=== PATIENT | male | born 1990 ===

== ENCOUNTER 2021-04-01 14:39 | Emergency (ER) | payer OTHER ==
[2021-04-01] MEDS ORDERED: NA CHLORIDE 0.9% 1,000 ML ONE (15:12)
[2021-04-01] MEDS ORDERED: ONDANSETRON 4 MG/2 ML VIAL ONE (15:12)
[2021-04-01] MEDS ORDERED: FAMOTIDINE 20 MG/2 ML VIAL IV ONE (15:12)
[2021-04-01 15:53] LABS: Absolute Lymphocytes (CBC) 0.3 K/uL (0.7-4.9); Hematocrit 52.7 % (39.6-49.0); Lymphocytes % 2.5 % (15.3-44.8); MPV 8.2 fL (7.6-11.3); RBC Red Blood Cell Count 6.39 M/uL (4.33-5.43)
[2021-04-01 16:32] LABS: Platelet Estimate ADEQ; White Blood Cell Scan OK (OK)
[2021-04-01 16:33] LABS: Blood Morphology Comment NOT SEEN (NOT SEEN)
[2021-04-01 18:02] LABS: Bilirubin Direct 0.1 mg/dL (0-0.2)
[2021-04-01 18:03] LABS: Potassium 4.4 mmol/L (3.5-5.1)
--- NOTE | 2021-04-01 19:07 | RAD REPORT ---
EXAM DESCRIPTION: CT - Abdomen Pelvis W Contrast - 04/01/2021 6:32 pm CLINICAL HISTORY: lower abdomen pain COMPARISON: <Comparisons> TECHNIQUE: Biphasic, helical CT imaging of the abdomen and pelvis was performed following 100 ml non -ionic IV contrast. No oral contrast. All CT scans are performed using dose optimization technique as appropriate and may include automated exposure control or mA/KV adjustment according to patient size. FINDINGS: No suspicious findings in the lung bases. The liver, spleen, and pancreas show no suspicious findings. Gallbladder and biliary tree are also wi thout suspicious finding. Symmetric renal function is seen with no hydronephrosis or suspicious renal mass. No pyelonephritis o r acute parenchymal process. No bladder abnormalities. No adrenal abnormalities. No gastric dilatation or wall thickening. Multiple fluid-filled nondilated small bowel loops are pres ent without wall thickening, mass or wall edema. The appendix is normal. No acute colon finding. No free air, free fluid or inflammatory stranding. No hernia, mass or bulky lymphadenopathy. No suspicious bony findings. IMPRESSION: No appendicitis, obstruction, free air or other emergent CT finding. Patient has prominent fluid-filled small bowel loops. This is a nonspecific pattern but could indicat e enteritis.
--- NOTE | 2021-04-01 19:47 | EDPHYS ---
Physician Documentation [facility] – [place], [place] Name: Adal Gibson Age: 30 yrs Sex: Male : 1990 Arrival Date: 04/01/2021 Time: 14:41 Bed 15 Private MD: ED Physician Oscar Kilpatrick HPI: 04/01 15:05 This 30 yrs old Unknown Male presents to ER via EMS with complaints of Abdominal Pain, cp Nausea. 15:05 The patient presents with abdominal pain. cp 15:05 Onset: The symptoms/episode began/occurred this morning. Associated signs and symptoms: cp Pertinent positives: nausea and vomiting, Pertinent negatives: chest pain, constipation, diarrhea, fever, headache, shortness of breath, testicular pain. 15:05 The symptoms are described as waxing/waning. cp 15:05 The symptoms do not radiate. Severity of pain: in the emergency department the pain has cp improved. Historical: - Allergies: 14:47 No Known Allergies; ic1 - Home Meds: 14:47 Albuterol Inhl [Active]; ic1 - PMHx: 14:47 Asthma; ic1 - Immunization history:: Adult Immunizations up to date. - Social history:: Smoking status: Patient denies any tobacco usage or history of. ROS: 15:10 Constitutional: Negative for body aches, chills, fever. cp 15:10 Eyes: Negative for injury, pain, redness, and discharge. cp 15:10 ENT: Negative for ear pain, sore throat, difficulty swallowing, difficulty handling secretions. 15:10 Cardiovascular: Negative for chest pain, palpitations. 15:10 Respiratory: Negative for cough, shortness of breath, wheezing. 15:10 Abdomen/GI: Positive for abdominal pain, nausea and vomiting, Negative for diarrhea, constipation, hematemesis. 15:10 Neuro: Negative for altered mental status, headache, weakness. 15:10 All other systems are negative. Exam: 15:15 Constitutional: The patient appears in no acute distress, alert, awake, cp non-diaphoretic, non-toxic, well developed, well nourished, uncomfortable. 15:15 Head/Face: Normocephalic, atraumatic. cp 15:15 Eyes: Periorbital structures: appear normal, Conjunctiva: normal, no exudate, no injection, Sclera: no appreciated abnormality, Lids and lashes: appear normal, bilaterally. 15:15 ENT: External ear(s): are unremarkable, Nose: is normal, Mouth: Lips: moist, Oral mucosa: moist, Posterior pharynx: Airway: no evidence of obstruction, patent. 15:15 Chest/axilla: Inspection: normal. 15:15 Cardiovascular: Rate: normal, Rhythm: regular. 15:15 Respiratory: the patient does not display signs of respiratory distress, Respirations: normal, no use of accessory muscles, no retractions, labored breathing, is not present, Breath sounds: are clear throughout, no decreased breath sounds, no stridor, no wheezing. 15:15 Abdomen/GI: Inspection: scar(s), are noted in the midline above umbilicus, Bowel sounds: active, all quadrants, Palpation: soft, in all quadrants, mild abdominal tenderness, in the right lower quadrant, rebound tenderness, is not appreciated, voluntary guarding, is not appreciated, involuntary guarding, is not appreciated. 15:15 Back: pain, is absent, ROM is normal. 15:15 Neuro: Orientation: to person, place \T\ time. Mentation: is normal. Vital Signs: 14:42 BP 105 / 74; Pulse 88; Resp 20; Temp 97.8; Pulse Ox 100% ; ic1 15:17 BP 135 / 86; Pulse 65; Resp 18; Pulse Ox 100% on R/A; ic1 18:28 BP 114 / 72; Pulse 77; Resp 18; Pulse Ox 99% on R/A; ic1 20:11 BP 115 / 70; Pulse 70; Resp 16; Pulse Ox 100% on R/A; st1 MDM: 14:47 Patient medically screened. cp 15:00 Differential diagnosis: appendicitis, cholecystitis, Cholelithiasis, gastritis, cp gastroesophageal reflux disease, non-specific abd pain, pancreatitis, Peptic Ulcer Disease, Perf. Duodenal Ulcer, Perf. Gastric Ulcer. 19:46 Data reviewed: vital signs, nurses notes, lab test result(s), radiologic studies, CT cp scan. 19:46 Counseling: I had a detailed discussion with the patient and/or guardian regarding: the cp historical points, exam findings, and any diagnostic results supporting the discharge/admit diagnosis, lab results, radiology results, to return to the emergency department if symptoms worsen or persist or if there are any questions or concerns that arise at home. Response to treatment: the patient's symptoms have markedly improved after treatment. Special discussion: Based on the patient's Hx, exam, and Dx evaluation, there is no indication for emergent surgery or inpatient Tx. It is understood by the patient/guardian that if the Sx's persist or worsen they need to return immediately for re-evaluation. ED course: VSS. Pain and nausea improved and vomiting resolved. Will discharge back into custody of [facility] guards for continued monitoring. 04/01 14:48 Order name: Basic Metabolic Panel; Complete Time: 18:58 cp 04/01 18:58 Interpretation: Normal except: NA 135; CL 109; GFR 64. cp 04/01 14:48 Order name: CBC with Diff; Complete Time: 16:53 cp 04/01 16:53 Interpretation: Normal except: RBC 6.39; HCT 52.7; TWYLA% 90.1; LYM% 2.5; NEUT A 9.3; cp LYMA 0.3. 04/01 14:48 Order name: Hepatic Function; Complete Time: 18:58 cp 04/01 18:59 Interpretation: Normal except: GLOB 4.0; A/G 1.0. cp 04/01 14:48 Order name: Lipase; Complete Time: 18:58 cp 04/01 18:59 Interpretation: Reviewed. 04/01 14:48 Order name: CT Abd/Pelvis - IV Contrast Only; Complete Time: 19:17 cp 04/01 16:33 Order name: CBC Smear Scan; Complete Time: 16:53 EDMS 04/01 14:48 Order name: IV Saline Lock; Complete Time: 15:09 cp 04/01 14:48 Order name: Labs collected and sent; Complete Time: 15:46 cp 04/01 15:56 Order name: Labs - recollect needed: recollect light green top; Complete Time: 17:27 bd 04/01 19:18 Order name: PO challenge; Complete Time: 20:10 cp Administered Medications: 15:26 Drug: Zofran (Ondansetron) 4 mg Route: IVP; Site: right hand; ic1 15:27 Drug: Pepcid (famotidine) 20 mg Route: IVP; Site: right hand; ic1 15:27 Drug: NS 0.9% 1000 ml Route: IV; Rate: 1 bolus; Site: right hand; ic1 20:11 Not Given (Patient Refused): Ketorolac 15 mg IVP once st1 20:11 Not Given (Patient Refused): Bentyl (dicyclomine) 20 mg PO once st1 Disposition Summary: 04/01/21 19:46 Discharge Ordered Location: Home cp Problem: new cp Symptoms: have improved cp Condition: Stable cp Diagnosis - Nausea with vomiting, unspecified cp - Abdominal pain, unspecified cp Followup: cp - With: Private Physician - When: 1 - 2 days - Reason: Recheck today's complaints Discharge Instructions: - Discharge Summary Sheet cp - Abdominal Pain, Adult cp - Nausea and Vomiting, Adult cp Forms: - Medication Reconciliation Form cp - Thank You Letter cp - Antibiotic Education cp - Prescription Opioid Use cp Prescriptions: - promethazine 25 mg Oral Tablet - take 1 tablet by ORAL route every 6 hours As needed; 20 tablet; Refills: 0, cp Product Selection Permitted - dicyclomine 20 mg Oral Tablet - take 1 tablet by ORAL route 4 times per day; 20 tablet; Refills: 0, Product cp Selection Permitted Addendum: 04/03/2021 00:04 Co-signature as Attending Physician, Oscar Kilpatrick MD I agree with the assessment and k dr plan of care. Signatures: Dispatcher [employer] EDMS Ashley Marcelo Kevin, MD MD [facility] Cruz Washington PA PA cp Rosita Cortez RN RN ic1 Lia Glaser RN st1
--- NOTE | 2021-04-01 19:47 | ER ---
Nurse's Notes [facility] Name: Adal Gibson Age: 30 yrs Sex: Male : 1990 Arrival Date: 04/01/2021 Time: 14:41 Bed 15 Private MD: Diagnosis: Nausea with vomiting, unspecified;Abdominal pain, unspecified Presentation: 04/01 14:42 Chief complaint: EMS states: brought in for abd pain. States he woke up this AM with ic1 RUQ pain and some belching. Pt states he thinks he was throwing up bile. Denies fever. Was given a pill by nurses at the facility but it is unknown. Coronavirus screen: Vaccine status: Patient reports being unvaccinated. Ebola Screen: No symptoms or risks identified at this time. Initial Sepsis Screen: Does the patient meet any 2 criteria? No. Patient's initial sepsis screen is negative. Does the patient have a suspected source of infection? No. Patient's initial sepsis screen is negative. Risk Assessment: Do you want to hurt yourself or someone else? Patient reports no desire to harm self or others. Onset of symptoms was April 01, 2021. 14:42 Method Of Arrival: EMS: [facility] ic1 14:42 Acuity: YELENA 3 ic1 Triage Assessment: 14:47 General: Appears in no apparent distress. uncomfortable, Behavior is calm, cooperative, ic1 appropriate for age. Pain: Complains of pain in abdomen. EENT: No deficits noted. Neuro: Level of Consciousness is awake, alert, obeys commands, Oriented to person, place, time, situation. Cardiovascular: No deficits noted. Respiratory: No deficits noted. GI: Reports upper abdominal pain, cramping, indigestion, nausea, vomiting, since this AM. : No deficits noted. Derm: No deficits noted. Musculoskeletal: No deficits noted. Historical: - Allergies: 14:47 No Known Allergies; ic1 - Home Meds: 14:47 Albuterol Inhl [Active]; ic1 - PMHx: 14:47 Asthma; ic1 - Immunization history:: Adult Immunizations up to date. - Social history:: Smoking status: Patient denies any tobacco usage or history of. Screenin:17 Abuse screen: Denies threats or abuse. Denies injuries from another. Nutritional ic1 screening: No deficits noted. Tuberculosis screening: No symptoms or risk factors identified. Fall Risk None identified. Assessment: 15:17 Reassessment: see triage. ic1 18:29 Reassessment: pt transported to CT via stretcher with guards at bedside. ic1 Vital Signs: 14:42 BP 105 / 74; Pulse 88; Resp 20; Temp 97.8; Pulse Ox 100% ; ic1 15:17 BP 135 / 86; Pulse 65; Resp 18; Pulse Ox 100% on R/A; ic1 18:28 BP 114 / 72; Pulse 77; Resp 18; Pulse Ox 99% on R/A; ic1 20:11 BP 115 / 70; Pulse 70; Resp 16; Pulse Ox 100% on R/A; st1 ED Course: 14:41 Patient arrived in ED. ds1 14:42 Rosita Cortez, LILIANE is Primary Nurse. ic1 14:42 Cruz Washington PA is PHCP. cp 14:42 Oscar Kilpatrick MD is Attending Physician. cp 14:47 Triage completed. ic1 14:47 Arm band placed on right wrist. ic1 15:14 Inserted saline lock: 22 gauge in right hand, using aseptic technique. tp1 15:17 Patient has correct armband on for positive identification. Bed in low position. Call ic1 light in reach. Side rails up X2. 15:17 No provider procedures requiring assistance completed. ic1 15:46 Inserted saline lock: 20 gauge in left antecubital area, using aseptic technique. Blood ic1 collected. 15:46 Basic Metabolic Panel Sent. ic1 15:46 CBC with Diff Sent. ic1 15:46 Hepatic Function Sent. ic1 15:46 Lipase Sent. ic1 18:32 CT Abd/Pelvis - IV Contrast Only In Process Unspecified. EDMS Administered Medications: 15:26 Drug: Zofran (Ondansetron) 4 mg Route: IVP; Site: right hand; ic1 15:27 Drug: Pepcid (famotidine) 20 mg Route: IVP; Site: right hand; ic1 15:27 Drug: NS 0.9% 1000 ml Route: IV; Rate: 1 bolus; Site: right hand; ic1 20:11 Not Given (Patient Refused): Ketorolac 15 mg IVP once st1 20:11 Not Given (Patient Refused): Bentyl (dicyclomine) 20 mg PO once st1 Outcome: 19:46 Discharge ordered by . elizabeth 20:12 Patient left the ED. mw2 Signatures: Dispatcher [employer] EDMS Kourtney Hall ds1 Cruz Washington PA PA cp [place], MyKena mw2 Iesha Null tp1 Rosita Cortez RN RN ic1 Lia Glaser RN RN st1
[2021-04-01 21:16] VITALS: TEMP 97.8
[2021-04-01 21:18] VITALS: BP 114/72; O2SAT 99
== END 2021-04-01 20:12 | disposition home or self-care (01) ==
LOC: ER 14:39
DX: R11.2 Nausea with vomiting, unspecified (principal); R10.9 Unspecified abdominal pain
CPT/HCPCS: 85025; 80048; 36415; 80076; 83690; 74177; 96375; 96374; 99284; Q9967; J2405; J7030

== ENCOUNTER 2022-07-22 04:20 | Emergency (ER) | payer OTHER ==
[2022-07-22] MEDS ORDERED: ONDANSETRON 4 MG/2 ML VIAL ONE (04:45)
[2022-07-22] MEDS ORDERED: NA CHLORIDE 0.9% 1,000 ML ONE (04:45)
[2022-07-22] MEDS ORDERED: KETOROLAC 30 MG/ML INJ ONE (04:45)
[2022-07-22 05:13] LABS: Absolute Lymphocytes (CBC) 1.3 K/uL (0.7-4.9); Hematocrit 37.5 % (39.6-49.0); Lymphocytes % 26.2 % (15.3-44.8); MCV 81.7 fL (80-100); MPV 7.7 fL (7.6-11.3); RBC Red Blood Cell Count 4.59 M/uL (4.33-5.43)
[2022-07-22 05:27] LABS: Albumin 3.7 g/dL (3.4-5.0); Bilirubin Total 0.8 mg/dL (0.2-1.0); Protein, Total 6.7 g/dL (6.4-8.2)
[2022-07-22 05:41] LABS: Specific Gravity 1.012 (1.005-1.030); Urine Bilirubin NEGATIVE (Negative); Urine Blood Negative (Negative); Urine Clarity Clear (Clear); Urine Color Light-Yellow (Yellow); Urine Glucose NEGATIVE (Negative); Urine Protein NEGATIVE (Negative); Urine Urobilinogen Normal (Normal)
--- NOTE | 2022-07-22 05:56 | ER ---
Nurse's Notes [facility] Name: Adal Gibson Age: 31 yrs Sex: Male : 1990 Arrival Date: 07/22/2022 Time: 04:20 Bed 5 Private MD: Diagnosis: Enteritis, hypokinesis of food, hypokalemia, abdominal pain Presentation: 07/22 04:29 Chief complaint: Patient states: "I woke up out of sleep with a sharp pain to my vc1 stomach, and I threw up". Coronavirus screen: Vaccine status: Patient reports being unvaccinated. Client denies travel out of the [place] in the last 14 days. At this time, the client does not indicate any symptoms associated with coronavirus-19. Ebola Screen: Patient negative for fever greater than or equal to 101.5 degrees Fahrenheit, and additional compatible Ebola Virus Disease symptoms Patient denies exposure to infectious person. Patient denies travel to an Ebola-affected area in the 21 days before illness onset. No symptoms or risks identified at this time. Initial Sepsis Screen: Does the patient meet any 2 criteria? No. Patient's initial sepsis screen is negative. Does the patient have a suspected source of infection? No. Patient's initial sepsis screen is negative. Risk Assessment: Do you want to hurt yourself or someone else? Patient reports no desire to harm self or others. Onset of symptoms was July 22, 2022 at 02:00. 04:29 Method Of Arrival: EMS: [facility] vc1 04:29 Acuity: YELENA 3 vc1 04:35 Care prior to arrival: IV initiated. 20 GA, in the left forearm. vc1 Triage Assessment: 04:34 General: Appears uncomfortable, Behavior is calm, cooperative. Pain: Complains of pain kd3 in chest. 04:36 Pain: Complains of pain in right lower quadrant and left lower quadrant Pain does not vc1 radiate. Pain currently is 0 out of 10 on a pain scale. at worst was 10 out of 10 on a pain scale. Quality of pain is described as crampy, Is intermittent. GI: Reports lower abdominal pain, Pain is 0 out of 10 on a pain scale. vomiting. Historical: - Allergies: 04:34 No Known Allergies; vc1 - Home Meds: 04:34 Albuterol Inhl [Active]; kd3 04:34 Albuterol Inhl [Active]; vc1 - PMHx: 04:34 Asthma; kd3 04:34 Asthma; vc1 - PSHx: 04:34 None; vc1 - Immunization history:: Adult Immunizations up to date, Client reports having NOT received the Covid vaccine. - Social history:: Smoking status: unknown Smoking status: unknown. Screenin:36 Abuse screen: Denies threats or abuse. Nutritional screening: No deficits noted. vc1 Tuberculosis screening: No symptoms or risk factors identified. 05:34 [facility] ED Fall Risk Assessment (Adult) History of falling in the last 3 months, kd3 including since admission No falls in past 3 months (0 pts) Confusion or Disorientation No (0 pts) Intoxicated or Sedated No (0 pts) Impaired Gait No (0 pts) Mobility Assist Device Used No (0 pt) Altered Elimination No (0 pt) Score/Fall Risk Level 0 - 2 = Low Risk Maintained a safe environment. Assessment: 05:33 General: Appears uncomfortable, Behavior is cooperative, anxious. Neuro: Level of kd3 Consciousness is awake, alert, obeys commands, Oriented to person, place, time, situation. Cardiovascular: Patient's skin is warm and dry. Respiratory: Airway is patent Trachea midline Respiratory effort is even, unlabored, Respiratory pattern is regular, symmetrical. 05:49 General: Appears in no apparent distress. comfortable, Behavior is calm, cooperative. kd3 Neuro: Level of Consciousness is awake, alert, obeys commands, Oriented to person, place, time, situation. Cardiovascular: Patient's skin is warm and dry. Respiratory: Airway is patent Trachea midline Respiratory effort is even, unlabored, Respiratory pattern is regular, symmetrical. 07:35 Reassessment: Pt resting with eyes closed, respirations even and unlabored. Guards cm10 remain at bedside. IV medication infusing, IV site, clean and dry. General: Appears in no apparent distress. comfortable, Behavior is calm, cooperative. Respiratory: No deficits noted. Airway is patent Trachea Respiratory effort is even, unlabored, Respiratory pattern is regular, symmetrical. Vital Signs: 04:29 BP 131 / 88; Pulse 74; Resp 17; Temp 98.4; Pulse Ox 100% ; Pain 0/10; vc1 05:32 BP 115 / 80; Pulse 62; Resp 18; Pulse Ox 100% on R/A; kd3 07:34 BP 114 / 66; Pulse 77; Resp 16; Pulse Ox 100% ; cm10 07:45 BP 103 / 62; Pulse 77; Resp 16; Pulse Ox 100% on R/A; cm10 04:29 Pain Scale: Adult vc1 ED Course: 04:24 Patient arrived in ED. rv1 04:24 Semaj Terrell MD is Attending Physician. sp3 04:34 Triage completed. vc1 04:34 Eladia Ramirez, RN is Primary Nurse. kd3 04:34 Arm band placed on right wrist. kd3 04:37 Patient has correct armband on for positive identification. Bed in low position. [facility] vc1 guards at bedside. 04:50 CBC with Diff Sent. kd3 04:50 CMP Sent. kd3 04:50 Lipase Sent. kd3 05:27 CT Abd/Pelvis - Without Contrast In Process Unspecified. EDMS 07:06 Primary Nurse role handed off by Eladia Ramirez RN ll1 07:06 Janice Smith, RN is Primary Nurse. ll1 07:07 Primary Nurse role handed off by Janice Smith, LILIANE cm10 07:07 Tonja Neal, RN is Primary Nurse. cm10 07:37 IV is patent, is intact. cm10 07:58 IV discontinued, intact, bleeding controlled, No redness/swelling at site. Pressure cm10 dressing applied. 08:00 No provider procedures requiring assistance completed. cm10 Administered Medications: 04:50 Drug: NS 0.9% IV 1000 ml Route: IV; Rate: 1 bolus; Site: left forearm; kd3 05:50 Follow up: Response: No adverse reaction; Marked relief of symptoms; IV Status: pf1 Completed infusion; IV Intake: 1000ml 04:50 Drug: TORadol - Ketorolac IVP 15 mg Route: IVP; Site: left forearm; kd3 05:50 Follow up: Response: No adverse reaction; Marked relief of symptoms; Pain is decreased pf1 04:50 Drug: Ondansetron IVP 4 mg Route: IVP; Site: left forearm; kd3 05:50 Follow up: Response: No adverse reaction; Marked relief of symptoms pf1 06:20 Drug: metoCLOPramide IVP 10 mg Route: IVP; Site: left antecubital; pf1 06:56 Follow up: Response: No adverse reaction kd3 06:20 Drug: Potassium Chloride PO 40 mEq Route: PO; pf1 08:04 Follow up: Response: No adverse reaction cm10 06:25 Drug: metroNIDAZOLE IVPB 500 mg Volume: 100 ml; Route: IVPB; Rate: 200 ml/hr; Infused pf1 Over: 30 mins; Site: left antecubital; 06:56 Follow up: IV Status: Completed infusion kd3 07:59 Follow up: IV Status: Completed infusion cm10 08:04 Follow up: Response: No adverse reaction cm10 06:56 Drug: Ciprofloxacin IVPB 400 mg Volume: 200 ml; Route: IVPB; Infused Over: 60 mins; kd3 Site: left forearm; 07:57 Follow up: IV Status: Completed infusion cm10 Medication: 04:35 VIS not applicable for this client. vc1 Intake: 05:50 IV: 1000ml; Total: 1000ml. pf1 Outcome: 05:55 Discharge ordered by . sp3 07:58 Discharged to home with guards cm10 07:58 Condition: improved 07:58 Discharge instructions given to patient, Instructed on discharge instructions, Demonstrated understanding of follow-up care, medications, Prescriptions given X 3. 08:05 Patient left the ED. cm10 Signatures: Dispatcher [employer] EDJanice Villela, RN RN ll1 Semaj Terrell MD MD sp3 Eladia Ramirez RN RN kd3 Jing Bagley RN RN 1 Suyapa Garcias RN RN pf1 Yola Roman Tonja Epstein RN RN cm10
--- NOTE | 2022-07-22 05:56 | EDPHYS ---
Physician Documentation [facility] Name: Adal Gibson Age: 31 yrs Sex: Male : 1990 Arrival Date: 07/22/2022 Time: 04:20 Bed 5 Private MD: ED Physician Semaj Terrell HPI: 07/22 04:27 This 31 yrs old Unknown Male presents to ER via Unassigned with complaints of sp3 Right-sided flank pain and abdominal pain. 04:27 31-year-old male with no significant past medical history presents with right-sided sp3 flank pain that it started occurring approximately 1 hour prior to arrival while in [facility]. He denies any other symptoms including grossly bloody urine, pain on urination prior kidney stones, diarrhea, chest pain, shortness of breath, fever, URI symptoms, known sick contacts, travel history, any other signs or symptoms on ROS at this time. Pain is described as occurring in waves and is coming and going. No pain currently.. Historical: - Allergies: 04:34 No Known Allergies; vc1 - Home Meds: 04:34 Albuterol Inhl [Active]; kd3 04:34 Albuterol Inhl [Active]; vc1 - PMHx: 04:34 Asthma; kd3 04:34 Asthma; vc1 - PSHx: 04:34 None; vc1 - Immunization history:: Adult Immunizations up to date, Client reports having NOT received the Covid vaccine. - Social history:: Smoking status: unknown Smoking status: unknown. ROS: 04:28 Constitutional: Negative for fever, chills, and weight loss, Eyes: Negative for injury, sp3 pain, redness, and discharge, ENT: Negative for injury, pain, and discharge, Neck: Negative for injury, pain, and swelling, Cardiovascular: Negative for chest pain, palpitations, and edema, Respiratory: Negative for shortness of breath, cough, wheezing, and pleuritic chest pain, Back: Negative for injury and pain, : Negative for injury, bleeding, discharge, and swelling, MS/Extremity: Negative for injury and deformity, Skin: Negative for injury, rash, and discoloration, Neuro: Negative for headache, weakness, numbness, tingling, and seizure, Psych: Negative for depression, anxiety, suicide ideation, homicidal ideation, and hallucinations, Allergy/Immunology: Negative for hives, rash, and allergies. 04:28 All other systems are negative. Exam: 04:29 Constitutional: This is a well developed, well nourished patient who is awake, alert, sp3 and in no acute distress. Head/Face: Normocephalic, atraumatic. Neck: Trachea midline, no thyromegaly or masses palpated, and no cervical lymphadenopathy. Supple, full range of motion without nuchal rigidity, or vertebral point tenderness. No Meningismus. Chest/axilla: Normal chest wall appearance and motion. Nontender with no deformity. No lesions are appreciated. Cardiovascular: Regular rate and rhythm with a normal S1 and S2. No gallops, murmurs, or rubs. Normal PMI, no JVD. No pulse deficits. Respiratory: Lungs have equal breath sounds bilaterally, clear to auscultation and percussion. No rales, rhonchi or wheezes noted. No increased work of breathing, no retractions or nasal flaring. Abdomen/GI: Soft, non-tender, with normal bowel sounds. No distension or tympany. No guarding or rebound. No evidence of tenderness throughout. Back: No spinal tenderness. No costovertebral tenderness. Full range of motion. Skin: Warm, dry with normal turgor. Normal color with no rashes, no lesions, and no evidence of cellulitis. MS/ Extremity: Pulses equal, no cyanosis. Neurovascular intact. Full, normal range of motion. Vital Signs: 04:29 BP 131 / 88; Pulse 74; Resp 17; Temp 98.4; Pulse Ox 100% ; Pain 0/10; vc1 05:32 BP 115 / 80; Pulse 62; Resp 18; Pulse Ox 100% on R/A; kd3 07:34 BP 114 / 66; Pulse 77; Resp 16; Pulse Ox 100% ; cm10 07:45 BP 103 / 62; Pulse 77; Resp 16; Pulse Ox 100% on R/A; cm10 04:29 Pain Scale: Adult vc1 MDM: 04:26 Patient medically screened. sp3 04:29 Data reviewed: vital signs, nurses notes, lab test result(s), radiologic studies. ED sp3 course: 31-year-old with right-sided flank pain. Differential diagnosis includes kidney stone, UTI, pyelonephritis, musculoskeletal pain. Not highly suspicious for intra-abdominal pathology including obstruction, colitis, pancreatitis, biliary pathology, ACS, vascular pathology including aorta, any other critical illness at this time. We will obtain CT scan of the abdomen and pelvis, laboratory values, urine analysis and administer ketorolac and Zofran IV as needed. Disposition pending work-up and patient course.. 05:54 ED course: CT demonstrates retained stomach contents. Patient is also been vomiting sp3 which explains low potassium. Positive enteritis on CT as well. CBC is otherwise normal. Will administer Reglan, Cipro, Flagyl, p.o. potassium and discharge patient on p.o. antibiotics and Reglan for the facility.. 07/22 04:27 Order name: CBC with Diff; Complete Time: 05:27 sp3 07/22 04:27 Order name: CMP; Complete Time: 05:27 sp3 07/22 04:27 Order name: Lipase; Complete Time: 05:27 sp3 07/22 04:27 Order name: Urinalysis w/ reflexes sp3 07/22 04:27 Order name: CT Abd/Pelvis - Without Contrast sp3 07/22 04:27 Order name: IV Saline Lock; Complete Time: 04:50 sp3 07/22 04:27 Order name: Labs collected and sent; Complete Time: 04:50 sp3 Administered Medications: 04:50 Drug: NS 0.9% IV 1000 ml Route: IV; Rate: 1 bolus; Site: left forearm; kd3 05:50 Follow up: Response: No adverse reaction; Marked relief of symptoms; IV Status: pf1 Completed infusion; IV Intake: 1000ml 04:50 Drug: TORadol - Ketorolac IVP 15 mg Route: IVP; Site: left forearm; kd3 05:50 Follow up: Response: No adverse reaction; Marked relief of symptoms; Pain is decreased pf1 04:50 Drug: Ondansetron IVP 4 mg Route: IVP; Site: left forearm; kd3 05:50 Follow up: Response: No adverse reaction; Marked relief of symptoms pf1 06:20 Drug: metoCLOPramide IVP 10 mg Route: IVP; Site: left antecubital; pf1 06:56 Follow up: Response: No adverse reaction kd3 06:20 Drug: Potassium Chloride PO 40 mEq Route: PO; pf1 08:04 Follow up: Response: No adverse reaction cm10 06:25 Drug: metroNIDAZOLE IVPB 500 mg Volume: 100 ml; Route: IVPB; Rate: 200 ml/hr; Infused pf1 Over: 30 mins; Site: left antecubital; 06:56 Follow up: IV Status: Completed infusion kd3 07:59 Follow up: IV Status: Completed infusion cm10 08:04 Follow up: Response: No adverse reaction cm10 06:56 Drug: Ciprofloxacin IVPB 400 mg Volume: 200 ml; Route: IVPB; Infused Over: 60 mins; kd3 Site: left forearm; 07:57 Follow up: IV Status: Completed infusion cm10 Disposition Summary: 07/22/22 05:55 Discharge Ordered Location: Home sp3 Condition: Stable sp3 Diagnosis - Enteritis, hypokinesis of food, hypokalemia, abdominal pain sp3 Followup: sp3 - With: Private Physician - When: Upon discharge from the Emergency Department - Reason: Continuance of care Discharge Instructions: - Discharge Summary Sheet sp3 - Food Poisoning sp3 - Campylobacter Gastroenteritis sp3 Forms: - Medication Reconciliation Form sp3 - Thank You Letter sp3 - Antibiotic Education sp3 - Prescription Opioid Use sp3 - SBAR form kd3 Prescriptions: - Flagyl 500 mg Oral Tablet - take 1 tablet by ORAL route every 12 hours for 7 days; 14 tablet; Refills: 0, sp3 Product Selection Permitted - Reglan 10 mg Oral Tablet - take 1 tablet by ORAL route every 6 hours take 30 minutes before meals and at sp3 bedtime as needed for nausea; 20 tablet; Refills: 0, Product Selection Permitted - Cipro 500 mg Oral Tablet - take 1 tablet by ORAL route every 12 hours for 7 days; 14 tablet; Refills: 0, sp3 Product Selection Permitted Signatures: Dispatcher [employer] Semaj Johnson MD MD sp3 Eladia Ramirez RN RN kd3 Jing Bagley RN RN 1 Suyapa Garcias RN RN pf1 Tonja Neal RN cm10
[2022-07-22] MEDS ORDERED: POTASSIUM CL SA 10 MEQ TAB PO ONE (06:23)
[2022-07-22] MEDS ORDERED: CIPROFLOXACIN 400mg IV 400 MG/200 ML BAG IV ONE (06:23)
[2022-07-22] MEDS ORDERED: METOCLOPRAMIDE 10 MG/2mL INJ ONE (06:23)
[2022-07-22] MEDS ORDERED: METRONIDAZOLE 500mg IVPB 500 MG/100 ML BAG IV ONE (06:24)
[2022-07-22 08:15] VITALS: TEMP 98.4; O2SAT 100
[2022-07-22 08:25] VITALS: BP 103/62
--- NOTE | 2022-07-24 12:19 | RAD REPORT ---
EXAM DESCRIPTION: Abdomen Pelvis Wo Contrast CLINICAL HISTORY: ABD PAIN AND VOMITING TECHNIQUE: Contiguous axial images obtained through the abdomen and pelvis without IV contrast. Sagi ttal and coronal reformatted images were provided. This exam was performed according to our departmental dose-optimization program, which includes autom ated exposure control, adjustment of the mA and/or kV according to patient size and/or use of iterati ve reconstruction technique. COMPARISON: None available for comparison. FINDINGS: Lung bases: Clear Liver: Unremarkable Gallbladder and biliary system: Unremarkable Pancreas: Unremarkable Spleen: Unremarkable Adrenals: Unremarkable Kidneys: No calculi. No hydronephrosis. Gl: Distended stomach with large amount of retained fluid which may represent delayed gastric emptyin g or gastroparesis. No bowel obstruction. Nondilated fluid-filled small bowel which may represent enteritis. Appendix: No findings to suggest acute appendicitis. Urinary bladder: Unremarkable Reproductive: Unremarkable as visualized Lymph nodes: No pathologically enlarged lymph nodes. Peritoneum: No focal fluid collection. No free air. Vessels: No abdominal aortic aneurysm. Abdominal wall: Unremarkable Bones: UnremarkableNo acute bony pathology IMPRESSION: Distended stomach with large amount of retained fluid which may represent delayed gastri c emptying or gastroparesis. No bowel obstruction. Nondilated fluid-filled small bowel which may represent enteritis. Electronically signed by: Anastacio Dawson MD 07/22/2022 5:44 AM CDT Due to temporary technical issues with the PACS/Fluency reporting system, reports are being signed by the in house radiologists without review as a courtesy to insure prompt reporting. The interpreting radiologist is fully responsible for the content of the report.
== END 2022-07-22 08:05 | disposition home or self-care (01) ==
LOC: ER 04:20
DX: K52.9 Noninfective gastroenteritis and colitis, unspecified (principal); Z59.41 Food insecurity
CPT/HCPCS: 85025; 36415; 81003; 83690; 80053; 74176; 99284; J2765; J2405; J0744; J7030